=== PATIENT | female | born 1960 ===

== ENCOUNTER 2022-09-21 16:16 | Inpatient (IN) ==
[2022-09-21] MEDS ORDERED: SODIUM CHLORIDE 0.9% 1,000 ML IV STA (16:41)
[2022-09-21 17:02] LABS: Basophils % 0.3 % (0.0-0.8); Eosinophils % 0.2 % (0.00-10.9); Hemoglobin 13.7 GM/DL (12.0-16.0); Immature Granulocytes % 0.8 %; Immature Granulocytes Absolute 0.09 #; Lymphocytes # 0.9 10*3/uL (1.4-4.0); Lymphocytes % 7.9 % (21.3-54.2); Mean Corpuscular HGB Conc 34.3 GM/DL (32-36); Mean Corpuscular Volume 89.1 FL (87-102); Mean Platelet Volume 10.6 FL (9.6-12.0); Monocytes # 0.5 10*3/uL (0.11-0.8); Monocytes % 4.4 % (1.7-12.7); Neutrophils % 86.4 % (38.7-73.9); Platelet Count 151 T/CUMM (130-400); Red Blood Count 4.49 MC/CUMM (3.8-5.5); Red Cell Distribution Width 12.5 % (9.3-17.3); White Blood Count 10.95 T/CUMM (4-12)
[2022-09-21 17:21] LABS: Arterial Base Excess iSTAT -10 MMOL/L (-2.5-2.5); Arterial Bicarbonate iSTAT 16.9 MMOL/L (20-26); Arterial O2 Saturation iSTAT 98 % (95-100); Arterial PCO2 iSTAT 39 MM HG (35-48); Arterial PO2 iSTAT 124 MM HG (80-95); Arterial Total CO2 iSTAT 18 MMO/L (23-27)
[2022-09-21 17:21] LABS: Albumin 3.7 G/DL (3.4-5.0); Calcium 8.6 MG/DL (8.5-10.1); Osmolality,Calculated 308.2 MOS/KG (273-304); Total Protein 7.8 G/DL (6.4-8.2)
[2022-09-21] MEDS ORDERED: INSULIN REGULAR 100 UNIT/ML IV STA (17:39)
[2022-09-21] MEDS ORDERED: LACTATED RINGERS 2,000 ML IV ONE (18:00)
[2022-09-21] MEDS ORDERED: DEXTROSE 10% 250 ML BAG IV PRN (18:31)
[2022-09-21] MEDS ORDERED: GLUCAGON 1 MG VIAL IM PRN (18:31)
[2022-09-21] MEDS ORDERED: ALBUTEROL 2.5 MG/3 ML NEB RESP TX PRN (18:31)
[2022-09-21] MEDS: LEVOFLOXACIN INJ 500 MG/100 ML PREMIX IV SCH (18:41)
[2022-09-21 18:57] LABS: Mucus,Urine Occasional /LPF (Occasional); RBC,Urine 1 /HPF (0-4); Squamous Epithelial Cell,Urine Occasional /HPF (0-10)
[2022-09-21 18:58] LABS: Bilirubin,Urine Negative (Negative); Blood, Urine Negative (Negative); Glucose,Urine (UA) 500 mg/dL (Negative); Ketones,Urine Negative (Negative); Nitrite,Urine Negative (Negative); Protein,Urine Negative (Negative); Urine Appearance Clear (Clear); Urine Color Yellow (Yellow); Urine Urobilinogen 0.2 eU/dL (<2.0); Urine pH 5.5 (4.5-8.0)
[2022-09-21] MEDS: LACTATED RINGERS 1,000 ML IV SCH (19:58)
[2022-09-21 20:20] LABS: Osmolality,Calculated 307.7 MOS/KG (273-304); Potassium 5.1 MMOL/L (3.5-5.1)
[2022-09-21] MEDS: ENOXAPARIN 30 MG/0.3 ML SYRINGE SUBCUT SCH (20:28)
[2022-09-21] MEDS: INSULIN LISPRO 100 UNIT/ML SUBCUT SCH ×2 (20:28→22:31)
[2022-09-21] MEDS: FAMOTIDINE 20 MG TABLET PO SCH (20:28)
[2022-09-21 22:50] LABS: Osmolality,Calculated 301.5 MOS/KG (273-304); Potassium 4.7 MMOL/L (3.5-5.1)
[2022-09-22] MEDS: INSULIN LISPRO 100 UNIT/ML SUBCUT SCH ×8 (00:35→21:41)
[2022-09-22 01:57] LABS: Calcium 8.4 MG/DL (8.5-10.1); Osmolality,Calculated 296.1 MOS/KG (273-304); Potassium 4.4 MMOL/L (3.5-5.1)
[2022-09-22] MEDS: LACTATED RINGERS 1,000 ML IV SCH ×3 (03:07→21:48)
[2022-09-22 07:30] LABS: Calcium 7.9 MG/DL (8.5-10.1); Potassium 4.8 MMOL/L (3.5-5.1)
[2022-09-22] MEDS ORDERED: LACTATED RINGERS 500 ML IV ONE (07:32)
[2022-09-22 07:50] LABS: Basophils % 0.1 % (0.0-0.8); Eosinophils % 0.1 % (0.00-10.9); Hematocrit 31.8 VOL% (35.7-47.0); Hemoglobin 11.2 GM/DL (12.0-16.0); Immature Granulocytes % 0.4 %; Immature Granulocytes Absolute 0.03 #; Lymphocytes % 13.1 % (21.3-54.2); Mean Corpuscular HGB Conc 35.2 GM/DL (32-36); Mean Corpuscular Volume 90.6 FL (87-102); Mean Platelet Volume 10.6 FL (9.6-12.0); Monocytes # 0.5 10*3/uL (0.11-0.8); Monocytes % 6.8 % (1.7-12.7); Neutrophils % 79.5 % (38.7-73.9); Platelet Count 139 T/CUMM (130-400); Red Blood Count 3.51 MC/CUMM (3.8-5.5); Red Cell Distribution Width 12.9 % (9.3-17.3); White Blood Count 7.91 T/CUMM (4-12)
[2022-09-22] MEDS: FAMOTIDINE 20 MG TABLET PO SCH ×2 (08:11→21:41)
[2022-09-22] MEDS: ALUMINUM/MAGNES/SIMETH MAX STR 30 ML UDCUP PO PRN ×2 (15:12→18:34)
[2022-09-22] MEDS: LEVOFLOXACIN INJ 500 MG/100 ML PREMIX IV SCH (17:32)
[2022-09-22] MEDS: ENOXAPARIN 30 MG/0.3 ML SYRINGE SUBCUT SCH (21:48)
[2022-09-22] MEDS: ONDANSETRON 4 MG/2 ML VIAL IV PRN (23:45)
[2022-09-23] MEDS: INSULIN LISPRO 100 UNIT/ML SUBCUT SCH ×6 (00:12→21:20)
[2022-09-23 04:59] LABS: Basophils % 0.3 % (0.0-0.8); Eosinophils # 0.1 10*3/uL (0.0-0.87); Eosinophils % 0.8 % (0.00-10.9); Hematocrit 28.6 VOL% (35.7-47.0); Hemoglobin 9.9 GM/DL (12.0-16.0); Immature Granulocytes % 0.3 %; Immature Granulocytes Absolute 0.02 #; Lymphocytes # 1.9 10*3/uL (1.4-4.0); Lymphocytes % 30.5 % (21.3-54.2); Mean Corpuscular HGB Conc 34.6 GM/DL (32-36); Mean Corpuscular Volume 90.2 FL (87-102); Mean Platelet Volume 10.4 FL (9.6-12.0); Monocytes # 0.5 10*3/uL (0.11-0.8); Monocytes % 7.3 % (1.7-12.7); Neutrophils % 60.8 % (38.7-73.9); Platelet Count 114 T/CUMM (130-400); Red Blood Count 3.17 MC/CUMM (3.8-5.5); Red Cell Distribution Width 12.7 % (9.3-17.3); White Blood Count 6.17 T/CUMM (4-12)
[2022-09-23 05:29] LABS: Calcium 8.3 MG/DL (8.5-10.1); Osmolality,Calculated 286.1 MOS/KG (273-304); Potassium 4.3 MMOL/L (3.5-5.1)
[2022-09-23] MEDS: LACTATED RINGERS 1,000 ML IV SCH ×3 (05:50→23:53)
[2022-09-23] MEDS: ONDANSETRON 4 MG/2 ML VIAL IV PRN (07:37)
[2022-09-23] MEDS: FAMOTIDINE 20 MG TABLET PO SCH ×2 (09:21→21:21)
[2022-09-23] MEDS ORDERED: ALBUTEROL 2.5 MG/3 ML NEB RESP TX PRN (13:01)
[2022-09-23] MEDS: metroNIDAZOLE INJ 500 MG/100 ML PREMIX IV SCH ×2 (14:15→21:20)
[2022-09-23] MEDS: LEVOFLOXACIN INJ 500 MG/100 ML PREMIX IV SCH (17:32)
[2022-09-23] MEDS ORDERED: SIMVASTATIN 40 MG TABLET PO SCH (21:00)
[2022-09-23] MEDS: ENOXAPARIN 30 MG/0.3 ML SYRINGE SUBCUT SCH (21:21)
[2022-09-24] MEDS: INSULIN LISPRO 100 UNIT/ML SUBCUT SCH ×3 (00:18→07:13)
[2022-09-24] MEDS: ONDANSETRON 4 MG/2 ML VIAL IV PRN (02:03)
[2022-09-24 05:37] LABS: Basophils % 0.4 % (0.0-0.8); Eosinophils # 0.1 10*3/uL (0.0-0.87); Eosinophils % 1.2 % (0.00-10.9); Hematocrit 29.6 VOL% (35.7-47.0); Hemoglobin 10.1 GM/DL (12.0-16.0); Immature Granulocytes % 0.6 %; Immature Granulocytes Absolute 0.03 #; Lymphocytes # 1.8 10*3/uL (1.4-4.0); Lymphocytes % 36.4 % (21.3-54.2); Mean Corpuscular HGB Conc 34.1 GM/DL (32-36); Mean Corpuscular Volume 90.8 FL (87-102); Mean Platelet Volume 10.4 FL (9.6-12.0); Monocytes # 0.4 10*3/uL (0.11-0.8); Monocytes % 8.1 % (1.7-12.7); Neutrophils % 53.3 % (38.7-73.9); Platelet Count 121 T/CUMM (130-400); Red Blood Count 3.26 MC/CUMM (3.8-5.5); Red Cell Distribution Width 12.4 % (9.3-17.3); White Blood Count 4.81 T/CUMM (4-12)
[2022-09-24 06:01] LABS: Albumin 2.6 G/DL (3.4-5.0); Bilirubin,Total 0.4 MG/DL (0.20-1.00); Calcium 8.3 MG/DL (8.5-10.1); Osmolality,Calculated 285.1 MOS/KG (273-304); Potassium 3.9 MMOL/L (3.5-5.1); Total Protein 6.1 G/DL (6.4-8.2)
[2022-09-24] MEDS: metroNIDAZOLE INJ 500 MG/100 ML PREMIX IV SCH (06:05)
[2022-09-24] MEDS ORDERED: MAGNESIUM SULF RIDER 2 GM/50 ML PREMIX IV ONE (07:20)
[2022-09-24] MEDS: LACTATED RINGERS 1,000 ML IV SCH (07:26)
[2022-09-24] MEDS: FAMOTIDINE 20 MG TABLET PO SCH (08:08)
[2022-09-24] MEDS: LEVOFLOXACIN INJ 500 MG/100 ML PREMIX IV SCH (08:08)
[2022-09-24 08:28] VITALS: BP 137/76
== END 2022-09-24 10:36 | disposition home or self-care (01) | DRG 637 ==
LOC: N.ED 16:16 → SUATTDRO 17:59 → N.EDINP 17:59 → N.ICU 19:12 → N.2E 09-22 16:32
PROVIDERS: ADMIT Family Medicine; ATTEND Internal Medicine